=== PATIENT | female | born 1965 | race Caucasian/White ===

== ENCOUNTER → 2021-12-22 10:45 | Outpatient (BNVA) | payer SELFPAY | PROVIDERS: Family Provider Nurse Practitioner Family; Visit Provider Emergency Medicine | DX: S99.911A Unspecified injury of right ankle, initial encounter (principal) | CPT/HCPCS: 73610 ==

== ENCOUNTER 2021-12-24 11:42 | Outpatient (CLI) | payer SELFPAY | END 2021-12-24 11:43 | disposition home or self-care (01) | LOC: SPT 11:42 | PROVIDERS: Family Provider Nurse Practitioner Family; Visit Provider Podiatrist Foot & Ankle Surgery | DX: Z46.89 Encounter for fitting and adjustment of other specified devices (principal); S82.841D Displaced bimalleolar fracture of right lower leg, subsequent encounter for closed fracture with routine healing; X58.XXXD Exposure to other specified factors, subsequent encounter | CPT/HCPCS: 97760; L4361 ==

== ENCOUNTER 2022-01-02 06:03 | Day surgery (SDC) | payer SELFPAY ==
[2022-01-01 12:23] VITALS: BMI 33.6
[2022-01-02] VITALS (15 sets, daily range): BP systolic 88–169; BP diastolic 54–83; PULSE 55–91; RESP 16–22; TEMP 19.7–36.7; O2SAT 92–100
--- NOTE | 2022-01-02 | SCC_ITS ---
Procedure done: Open reduction internal fixation right bimalleolar fracture CPT code 53185 7 seconds of fluoroscopic guidance, for a cumulative dose of 0.18 mGy, was provided to Dr. Batista by the radiology department. C-arm images of the RIGHT ankle were saved for the patient's permanent record. [facility]ENTER[facility]
--- NOTE | 2022-01-02 06:28 | ANES.PREANE2 ---
Pre-Anesthetic Assessment Height/Weight: Height 1.57 m Weight 83.461 kg Temp Pulse Resp BP Pulse Ox 98.1 F 55 L 18 169/83 96 01/02/22 06:24 01/02/22 06:24 01/02/22 06:24 01/02/22 06:24 01/02/22 06:24 Preop Diagnosis: Right bimalleolar fracture. Operation Date: 01/02/22 07:00 Proposed Procedures p ORIF Reduction internal fixation right bimalleolar fracture 36399/S82.813A(Right) - Mitchel Batista DPM Familial anesthetic complications: None Pt hx of PONV Was Beta Micike taken within 24 hours: N/A Was Clonidine taken within 24 hours: N/A Last intake: 01/01 Social No alcohol and No tobacco Exam alert, oriented x 3, clear to auscultation bilaterally and regular rate & rhythm Airway Submandibular: within normal limits Cervical ROM: within normal limits Mallampati: Class I Dentition: full History/ROS No significant complaints Pulmonary None reported CV/HEM Hypertension None reported Hepatic None reported GI Gastroesophageal Reflux Disease (WC) Metabolic None reported Musc/skel acute fx Neuropsych None reported Anesthetic Plan ASA status: 2 Anesthesia: Anesthesia Evaluation, General, MAC and Regional (specify below) (Popliteal and saphenous nerve block for PO pain control) Other: I discussed with the patient risks, goals, and benefits of MAC and general anesthesia. We discussed spectrum of MAC anesthesia including conversion to general as well as possibility of recall of intraoperative stimuli including discomfort/pain. Patient agrees to proceed with MAC. We discussed risk and benefits of nerve block for post op pain control including management of pain and titration of pain medications as signs/symptoms of nerve block wearing off begin to appear and/or prior bed. We discussed risk of failed nerve block, vascular injury or other vital structure injury, abscess/infection, LAST, and nerve injury. Patient has hx of PONV. Plan propofol infusion with natural airway to reduce risk of PONV. Risk of > 500 ml blood loss (7ml/kg in children): No Medications/Allergies Home Medications Medication Instructions Recorded Confirmed Last Taken Type acetaminophen 325 mg capsule 325 mg PO QID PRN 12/22/21 01/02/22 01/01/22 21:00 History (Tylenol) hydrochlorothiazide 12.5 mg capsule 12.5 mg PO DAILY 12/22/21 01/02/22 01/01/22 History losartan 25 mg tablet 25 mg PO DAILY 12/22/21 01/02/22 01/01/22 21:00 History Cam boot to right #1 ea 12/24/21 12/27/21 Unknown Rx hydrocodone 10 mg-acetaminophen 1 tab PO Q6H 7 Days #28 tab 01/02/22 Unknown Rx 325 mg tablet Allergies Allergy/AdvReac Type Severity Reaction Status Date / Time Penicillins Allergy Intermediate ALGY-Difficulty Verified 01/01/22 12:21 Breathing PFSH Anesthesia Social History Smoking and tobacco status: never smoked Data Anesthesia : 01/02/22 06:50 Cardiac Studies: No Data to Display
--- NOTE | 2022-01-02 06:29 | W.PM.OPSUD ---
Surgery/Procedure H&P Update DATE OF PROCEDURE: January 02, 2022 DATE H&P PERFORMED: 12/24/21 CHANGES TO PREVIOUS DOCUMENTATION: None PREOP DIAGNOSIS: Right bimalleolar fracture. PLANNED PROCEDURE: Operation Date: 01/02/22 07:00 Proposed Procedures p ORIF Reduction internal fixation right bimalleolar fracture 80100/S82.813A(Right) - Mitchel Batista DPM
[2022-01-02] MEDS: sodium chloride 0.9% 1,000 ML 30 ML IV (06:40)
--- NOTE | 2022-01-02 06:47 | PM.OP ---
Operative Report Date of procedure: January 02, 2022 Pre-op diagnosis: Right bimalleolar fracture. Post-op diagnosis: Right bimalleolar fracture Post-op findings: None Procedure done: Open reduction internal fixation right bimalleolar fracture CPT code 56350 Implants: [place] 28 anatomic fibular plate with 3.5 locking and nonlocking screws, 2-0 Vicryl, 4-0 Vicryl, skin callum. Specimens removed/disposition: None Pathology: None Surgeon: Mitchel Batista D.P.M. Per Diem Clerk: Masoud Estimated blood loss: 5 33 IV fluids: 0 Urine output: 0 Complications: None Findings: Reduced bimalleolar equivalent fracture. Brief History: Fell while rollerskating sustained a right bimalleolar equivalent. Recommended ORIF with risks including but not limited to pain, bleeding, numbness, infection, hardware failure, delayed union, malunion, nonunion, need for further surgical invention, high likelihood for posttraumatic arthritis, deep vein thrombosis, heart attack, stroke and . Patient is n.p.o. since midnight. Informed consent signed and her right lower extremity initialed by patient and myself. No guarantees written, expressed or implied. Patient wishes to proceed. Procedure: Under mild sedation the patient was brought to the operating room and placed on the operating table in supine position. A timeout was performed. Anesthesia was then administered by the anesthesia service. Popliteal block performed and saphenous nerve block performed per anesthesia preoperatively. Well-padded pneumatic tourniquet applied to right high calf. Right lower extremity was then scrubbed, prepped and draped utilizing normal aseptic technique. Right foot and ankle were exanguinated with an Esmarch bandage and the tourniquet inflated to 250 mmHg. Attention was directed to the right lateral malleolus where a linear longitudinal incision was made over the distal fibula through skin with blunt and sharp dissection carried down through subcutaneous tissue to the layer of periosteum utilizing care to retract and preserve neurovascular and tendinous structures. All bleeders were ligated and cauterized as necessary. Oblique fracture of the distal fibula with posterior spike was evacuated of his hematoma and reduced to anatomic alignment, this was pulled out to length and derotated and fixated utilizing interfragmentary screws utilizing standard AO technique with excellent bony apposition and compression noted. Further stabilization with rigid internal fixation was performed utilizing standard AO technique utilizing a [place] 28 anatomic fibular plate and 3.5 mm locking and nonlocking screws. Cotton hook test employed under live fluoroscopy showed intact syndesmosis. Ankle mortise was congruent. Excellent placement of hardware without violating the ankle mortise in all 3 planes. Incision was flushed with same solution and closed in a layered fashion. Periosteum closed with 2-0 Vicryl, subcu tenuous tissue closed with 3-0 Vicryl and skin with skin callum. Post procedure lidocaine infiltrated a total of 20 cc at the operative site. Sterile dressing consisting of Adaptic, sterile 4 x 4, Kerlix, Adan wrap and a multilayer compressive posterior splint with ankle at 90 degrees was applied. Tourniquet was then deflated and a prompt hyperemic response was noted to the distal digits of the right lower extremity. Patient was then transferred to the PACU with vital signs stable and vascular status intact. Following a period of postop monitoring she will be discharged home is to remain strict nonweightbearing to the right lower extremity. She is to elevate her right foot above her hip while resting. I advised to take a aspirin once daily 81 mg beginning the morning after surgery this would be 01/03/2022 to potentially reduce the risk of deep vein thrombosis. She was prescribed hydrocodone 10/325 mg to be taken every 6 hours as needed for pain this was sent electronically to [facility].
[2022-01-02] MEDS: scopolamine 1.5 Patch 1 PATCH TRANSDERMA (06:48)
[2022-01-02] MEDS: diphenhydrAMINE 50 mg/mL SDV 1mL 12.5 MG IVP (06:48)
[2022-01-02] MEDS: CELEcoxib 200 mg Capsule 400 MG PO (06:49)
[2022-01-02] MEDS: gabapentin 300 mg Capsule PO (06:49)
[2022-01-02] MEDS: clindamycin 600 MG/50 ML PREMIX 100 MG IV (07:14)
[2022-01-02 07:23] LABS: Blood Urea Nitrogen 16 mg/dL (6-20); Calcium 9.9 mg/dL (8.5-10.5); Carbon Dioxide 24 mmol/L (22-29); Chloride 103 mmol/L (98-107); Glomerular Filtration Rate 127.2 mL/min (90-130); Glucose 99 mg/dL (65-115); Osmolality Calculated 289 mOsm/kg (285-295); Sodium 139 mmol/L (136-145)
[2022-01-02] MEDS: lidocaine 2% INJ 20 mL INJECTION (07:43)
--- NOTE | 2022-01-02 08:04 | ANES.PROC ---
Anesthesia Procedures Procedure/Date: 01/02/22 Nerve Block ^: Nerve Block 1: Main Anesthesia: general anesthesia Time Out Performed: Yes Consent: requested by attending/covering physician, from patient, risks and benefits reviewed and patient agrees to proceed Nerve block location: popliteal Anesthesia monitors applied: pulse oximetry, EKG and BP cuff Nerve block position: supine Anesthetic Used: lidocaine 2% (5 cc), ropivicaine 0.5% (25 cc) and other Amount of anesthesia used (mL): 30 Ultrasound used to: recognize landmarks Nerve Stimulator Used?: No Interscalene/Femoral BLK: 4 stimuplex 21 g needle used for position and inplane approach Injection: neg aspiration of heme Patient Tolerated Procedure: well Complications: none Additional Comments: After time out sterile prep, using sterile technique, and using real time US guidance for target selection needle was inserted with real time visualization of needle entry and real time visualization of needle advancement toward intended target. Negative aspiration. LA injected incrementally with negative aspiration every 5 cc and real time US visualization of LA spread throughout procedure. Tolerated well. Image(s) saved. Nerve Block 2: Main Anesthesia: general anesthesia Time Out Performed: Yes Consent: requested by attending/covering physician, from patient, risks and benefits reviewed and patient agrees to proceed Nerve block location: other (saphaneous) Anesthesia monitors applied: pulse oximetry, EKG and BP cuff Nerve block position: supine Anesthetic Used: lidocaine 2% (5 cc) and ropivicaine 0.5% (5 cc) Nerve Stimulator Used?: No Injection: neg aspiration of heme Patient Tolerated Procedure: well Complications: none Additional Comments: After time out sterile prep, using sterile technique, and using field block technique total 10 cc infiltrated across tibial plateau after negative aspiration with each pass
--- NOTE | 2022-01-02 08:26 | XR_ITS ---
WS: [id number] XR ankle RT min 3V* [id number] REASON FOR EXAM: post op FINDINGS: Plate and screw fixation of distal fibular fracture at the syndesmotic level. Surgical appliances and fracture fragments in proper position and alignment. Joint spaces of the right ankle are preserved. XR/XR ankle RT min 3V* [id number] IMPRESSION: Postoperative right ankle without abnormality.
[2022-01-02] MEDS: fentaNYL 50 mcg/mL INJ 2mL IVP ×2 (08:28→08:42)
[2022-01-02] MEDS: HYDROcodone-acetaminophen 10-325 mg Tablet 1 TAB PO (09:46)
--- NOTE | 2022-01-02 13:14 | ANE.PACU2 ---
Inpatient post-anesthesia follow up: Airway intact: Yes Vital signs: Temperature 67.5 F Pulse Rate 65 Respiratory Rate 18 Blood Pressure 104/64 Pulse Oximetry 96 Oxygen Delivery Me thod Room Air Oxygen Flow Rate 8 Fraction of Inspir ed Oxygen Hydration adequate: Yes Nausea and vomiting: No Pain level: 3 Mental status: Baseline
== END 2022-01-02 10:10 | disposition home or self-care (01) ==
PROVIDERS: Anesthesiology; Visit Provider Podiatrist Foot & Ankle Surgery
PROC: (CPT 27814; principal; 2022-01-02 07:00)
DX: S82.841A Displaced bimalleolar fracture of right lower leg, initial encounter for closed fracture (principal); V00.128A Other non-in-line roller-skating accident, initial encounter
CPT/HCPCS: 27814; 36415; 64450; 73610; 76000; 76942; 80048; C1713; J0360; J1100; J1170; J1200; J2250; J2405; J2704; J2795; J3010; J3490; J7030

== ENCOUNTER → 2022-01-15 15:13 | Outpatient (BNVA) | payer SELFPAY | PROVIDERS: Visit Provider Podiatrist Foot & Ankle Surgery | DX: Z98.890 Other specified postprocedural states (principal) | CPT/HCPCS: 73610 ==

== ENCOUNTER → 2022-02-12 13:21 | Outpatient (BNVA) | payer SELFPAY | PROVIDERS: Visit Provider Podiatrist Foot & Ankle Surgery | DX: Z98.890 Other specified postprocedural states (principal) | CPT/HCPCS: 73610 ==

== ENCOUNTER 2022-02-12 15:57 | Outpatient (CLI) | payer SELFPAY | END 2022-02-12 15:58 | disposition home or self-care (01) | LOC: SPT 15:57 | PROVIDERS: Visit Provider Podiatrist Foot & Ankle Surgery | DX: Z46.89 Encounter for fitting and adjustment of other specified devices (principal); S82.831D Other fracture of upper and lower end of right fibula, subsequent encounter for closed fracture with routine healing; X58.XXXD Exposure to other specified factors, subsequent encounter | CPT/HCPCS: 97760; L1902 ==

== ENCOUNTER → 2022-03-05 13:38 | Outpatient (BNVA) | payer SELFPAY | PROVIDERS: Visit Provider Podiatrist Foot & Ankle Surgery | DX: Z98.890 Other specified postprocedural states (principal) | CPT/HCPCS: 73610 ==

== ENCOUNTER → 2022-04-02 13:16 | Outpatient (BNVA) | payer SELFPAY | PROVIDERS: Visit Provider Podiatrist Foot & Ankle Surgery | DX: S99.911A Unspecified injury of right ankle, initial encounter (principal); X58.XXXA Exposure to other specified factors, initial encounter | CPT/HCPCS: 73610 ==

== ENCOUNTER → 2022-04-07 07:37 | Outpatient (BNVA) | payer SELFPAY | PROVIDERS: Referring Provider Podiatrist Foot & Ankle Surgery; Visit Provider Student in an Organized Health Care Education/Training Program | DX: M25.561 Pain in right knee (principal) | CPT/HCPCS: 73564 ==